=== PATIENT | female | born 1935 | race Caucasian/White ===

== ENCOUNTER 2019-09-18 09:45 | Inpatient (IN) | payer MEDICARE, OTHER ==
[~2019-09-18] VITALS: Ht 157.5 cm; Wt 68.8 kg
[2019-09-18] VITALS (75 sets, daily range): BP systolic 136; BP diastolic 59; PULSE 70; TEMP 98.7; O2SAT 59–100
[2019-09-18 10:22] LABS: HEMATOCRIT 37.9 % (37.0-47.0); HEMOGLOBIN 11.7 g/dl (12.5-16.0); MEAN CELL VOLUME 100 fl (80.0-100.0); MEAN CORPUSCULAR HEMOGLOBIN 31 pg (27.0-31.0); MEAN CORPUSCULAR HGB CONC 31 g/dl (33.0-37.0); MEAN PLATELET VOLUME 10.6 fl (7.4-10.4); PLATELET COUNT 186 K/mm3 (130-400); RED BLOOD COUNT 3.81 M/mm3 (4.10-5.30); REDCELL DISTRIBUTION WIDTH-CV 16.1 % (11.5-14.5)
[2019-09-18 10:28] LABS: ALBUMIN 4.2 gm/dL (3.5-5.0); BILIRUBIN,TOTAL 0.9 mg/dL (0.0-1.0); CREATININE, serum 2.4 (0.52-1.25); POTASSIUM 5.6 mmol/L (3.4-5.0)
[2019-09-18 10:43] LABS: INR 3.8 (0.8-3.0)
[2019-09-18 10:46] LABS: PARTIAL THROMBOPLASTIN TIME 37.1 SECONDS (26.0-37.0)
[2019-09-18 10:47] LABS: TROPONIN-I 68.5 ng/mL (0.000-0.035)
[2019-09-18 10:48] LABS: PROTHROMBIN TIME 46.6 SECONDS (9.7-12.8)
[2019-09-18 10:54] LABS: BAND 2 % (0-10); LYMPHOCYTE 44 % (20.0-51.0); NEUTROPHILS 52 % (42.0-75.2); PLATELET ESTIMATE NORMAL (NORMAL)
== END 2019-09-20 12:57 | disposition expired ==
LOC: COL.ER 09:45 → ICU 11:35 → MEDICAL 18:01
PROVIDERS: Family Medicine; Physician Assistant; ADMIT Internal Medicine
DX: I21.4 Non-ST elevation (NSTEMI) myocardial infarction (principal); I47.2 Ventricular tachycardia; I13.0 Hypertensive heart and chronic kidney disease with heart failure and stage 1 through stage 4 chronic kidney disease, or unspecified chronic kidney disease; N18.4 Chronic kidney disease, stage 4 (severe); I50.22 Chronic systolic (congestive) heart failure; I42.9 Cardiomyopathy, unspecified; K80.10 Calculus of gallbladder with chronic cholecystitis without obstruction; I48.20 Chronic atrial fibrillation, unspecified; I25.110 Atherosclerotic heart disease of native coronary artery with unstable angina pectoris; Z51.5 Encounter for palliative care; E87.5 Hyperkalemia; R74.8 Abnormal levels of other serum enzymes; E03.9 Hypothyroidism, unspecified; R79.1 Abnormal coagulation profile; Z86.73 Personal history of transient ischemic attack (TIA), and cerebral infarction without residual deficits; Z95.0 Presence of cardiac pacemaker
CPT/HCPCS: 99231-AI; 99239; J0282; J1815; J2060; J2270; J2405; J7060